=== PATIENT | female | born 1945 | race Caucasian/White ===

== ENCOUNTER 2023-04-08 11:05 | Observation (INO) | payer MEDICARE, SELFPAY ==
[2023-04-08] VITALS (40 sets, daily range): BP systolic 100–162; BP diastolic 43–74; PULSE 62–82; RESP 0–24; TEMP 37–37.4; O2SAT 84–100; BMI 29.0; BMI 29.7
--- NOTE | 2023-04-08 11:29 | ED_ITS ---
HPI - Fall General Chief Complaint: Weakness Stated Complaint: DIZZINESS/WEAKNESS/FALLEN 2X/HEADACHE Time Seen by Provider: 04/08/23 11:29 Source: patient and family Mode of arrival: Wheelchair Limitations: no limitations History of Present Illness HPI Narrative: pt presents to emergency department complaining of weakness. Patient states she has fallen twice today because she is very weak. Hit her head and she takes aspirin. She states she has a cough, shortness of breath. The cough is productive of yellow sputum. Symptoms have been ongoing for about a week. The patient was in [place] and she fell and has an abrasion to her left pinky metatarsal area. She states she's been doing wound care as and certainly that could be the problem.Patient has a history of stage III kidney disease. 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 She denies any chest pain. She denies any nausea, vomiting, diarrhea, constipation, or abdominal pain. Specifically, hematuria, dysuria. Extremities the fevers states she's had chills she denies any previous history of lung disease. Related Data Home Medications Medication Instructions Recorded Confirmed B-complex with vitamin C 1 tab PO DAILY 04/08/23 04/08/23 amlodipine 10 mg tablet 10 mg PO DAILY 04/08/23 04/08/23 aspirin 81 mg chewable tablet 81 mg PO DAILY 04/08/23 04/08/23 atorvastatin 40 mg tablet 40 mg PO QPM 04/08/23 04/08/23 calcium citrate 200 mg (950 mg) 200 mg PO DAILY 04/08/23 04/08/23 tablet cholecalciferol (vitamin D3) 125 125 mcg PO DAILY 04/08/23 04/08/23 mcg (5,000 unit) capsule citalopram 10 mg tablet 10 mg PO DAILY 04/08/23 04/08/23 colestipol 1 gram tablet (Colestid) 1 g PO BID 04/08/23 04/08/23 fluticasone propionate 50 1 spray intranasal DAILY 04/08/23 04/08/23 mcg/actuation nasal spray,suspension (Flonase Allergy Relief) furosemide 40 mg tablet 40 mg PO DAILY 04/08/23 04/08/23 gabapentin 300 mg capsule 300 mg PO TID 04/08/23 04/08/23 gabapentin 600 mg tablet 600 mg PO .QHS 04/08/23 04/08/23 insulin glargine 100 unit/mL 40 unit subcut QPM 04/08/23 04/08/23 subcutaneous solution insulin lispro 100 unit/mL 15 unit subcut BID 04/08/23 04/08/23 subcutaneous pen insulin lispro 100 unit/mL 10 unit subcut QAM 04/08/23 04/08/23 subcutaneous solution multivitamin-ferrous 1 tab PO DAILY 04/08/23 04/08/23 fumarate-folic acid 18 mg-400 mcg tablet (Centrum Complete) Allergies Allergy/AdvReac Type Severity Reaction Status Date / Time No Known Drug Allergies Allergy Verified 04/08/23 11:15 Review of Systems ROS Status of ROS 10 or more systems reviewed and unremarkable except as noted in history and below Exam Narrative Exam Narrative: Nurses notes and vital signs reviewed and patient is not hypoxic. General: Nontoxic, Elderly, Chronically ill, and in no apparent distress. Skin: Warm, dry, no pallor noted. No Rash Head: Normocephalic, atraumatic. Neck: Supple, non-tender. Eye: Pupils are equal, round and EOMI. No scleral icterus. Ears, Nose, Mouth, and Throat: TM clear, no posterior oropharynx erythema or nasal mucosal hypertrophy, uvula is mid-line Oral mucosa is dry Cardiovascular: Regular Rate and Rhythm without murmur, gallop or rub. Respiratory: No accessory muscle use or respiratory distress. Lungs are clear to auscultation, no wheezing, rales or rhonchi Chest Wall: no tenderness Back: No midline thoracic or lumbar vertebral tenderness. No CVA tenderness Musculoskeletal: normal ROM, no calf or popliteal tenderness, no lower extremity edema/swelling, 2 cm left 5th metatarsophalangeal joint abrasion with 2 cm of erythema streaking proximally. DP +2, tp+2, capillary refill is brisk. GI: Abdomen is soft, non-distended. Normal bowel sounds. No masses appreciated. No tenderness to palpation. No rebound, guarding, or rigidity noted. Neurological: A&O x4. No cranial nerve dysfunction observed. Moves all extremities. Psychiatric: Cooperative and interactive. Normal mood and affect. Constitutional Vital Signs, click to edit/add: Last Vital Signs Temp 98.6 F 04/08/23 11:12 Pulse 81 04/08/23 16:15 Resp 24 04/08/23 16:15 BP 162/74 H 04/08/23 16:15 Pulse Ox 92 L 04/08/23 16:15 O2 Del Method Room Air, Nasal Cannula 04/08/23 13:19 O2 Flow Rate 2 04/08/23 13:19 Course Vital Signs Vital signs: Vital Signs Temperature 98.6 F 04/08/23 11:12 Pulse Rate 66 04/08/23 11:12 Respiratory Rate 18 04/08/23 11:12 Blood Pressure 109/68 04/08/23 11:12 Pulse Oximetry 96 04/08/23 11:12 Oxygen Delivery Method Room Air 04/08/23 11:12 Temperature 98.6 F 04/08/23 11:12 Pulse Rate 81 04/08/23 16:15 Respiratory Rate 24 04/08/23 16:15 Blood Pressure 162/74 H 04/08/23 16:15 Pulse Oximetry 92 L 04/08/23 16:15 Oxygen Delivery Method Room Air, Nasal Cannula 04/08/23 13:19 Oxygen Delivery Flow Rate 2 04/08/23 13:19 MDM - Fall MDM Narrative Medical decision making narrative: Patient was given IV fluids, Rocephin. Patient is found to be hypoxic. She stated she has sleep apnea and was told years ago she needed to use a BiPAP. Her BiPAP broke so she has not used in over 3 years. Patient states she has no other history of lung disease. She does not use any nebulizers at home. [address] scan of the chest without contrast secondary to kidney disease did not show anything acute either. ABG demonstrates the patient is hypoxic even on 2 L nasal cannula. Patient is to have a VQ scan done. Patient was discussed with Dr. Santiago to admit the patient for urinary tract infection, cellulitis and hypoxemia. He advised that the patient heparin subcutaneous and bring the Patient and for observation. Medical Records Attestation: I reviewed the patient's medical records. Medical records narrative: His previous labs were reviewed. Lab Data Attestation: I reviewed the patient's lab results. Labs: Lab Results 04/08/23 04/08/23 04/08/23 Range/Units 11:30 14:10 15:25 WBC 14.1 H (4.0-11.0) 10^3/uL RBC 3.54 L (4.20-5.40) 10^6/uL Hgb 10.5 L (12.0-16.0) g/dL Hct 32.2 L (36.0-48.0) % MCV 91.0 (81.0-99.0) fL MCH 29.7 (26.7-34.0) pg MCHC 32.6 (29.9-35.2) g/dL RDW 13.1 (11.0-15.0) % Plt Count 145 L (150-450) 10^3/uL MPV 11.0 (9.5-13.5) fL Neut % (Auto) 88.1 H (43.0-75.0) % Lymph % (Auto) 2.9 L (20.5-60.0) % [place] % (Auto) 8.3 (1.7-12.0) % Eos % (Auto) 0.1 L (0.9-7.0) % Baso % (Auto) 0.2 (0.2-2.0) % Neut # (Auto) 12.5 H (1.4-6.5) 10^3/uL Lymph # (Auto) 0.4 L (1.2-3.8) 10^3/uL [place] # (Auto) 1.2 H (0.3-0.8) 10^3/uL Eos # (Auto) 0.0 (0.0-0.7) 10^3/uL Baso # (Auto) 0.0 (0.0-0.1) 10^3/uL Abs Immat Gran (auto) 0.06 H (0.00-0.03) 10^3/uL Imm/Tot Granulo (auto) 0.4 (0.0-0.5) % Puncture Site Lr ABG pH 7.445 (7.350-7.450) ABG pCO2 37.7 (35.0-45.0) mmHg ABG pO2 61.9 L (80.0-100.0) mmHg ABG HCO3 25.9 (22.0-26.0) mmol/L ABG O2 Saturation 90.7 % ABG Base Excess 1.8 (-2.0-2.0) mmol/L David Test Positive (POSITIVE) O2 Liters/Min 2 Sodium 133 L (136-145) mmol/L Potassium 4.7 (3.5-5.1) mmol/L Chloride 96 L (98-107) mmol/L Carbon Dioxide 27.2 (21.0-32.0) mmol/L Anion Gap 14.5 BUN 84.0 H* (7.0-18.0) mg/dL Creatinine 3.21 H (0.55-1.02) mg/dL Est GFR ( Amer) 17 L (>=60) Est GFR (Non-Af Amer) 14 L (>=60) BUN/Creatinine Ratio 26.2 Glucose 316 H (74-106) mg/dL Calcium 8.6 (8.5-10.1) mg/dL Magnesium 1.9 (1.8-2.4) mg/dL Total Bilirubin 1.3 H (0.2-1.0) mg/dL AST 14 L (15-37) U/L ALT 23 (14-59) U/L Alkaline Phosphatase 63 (46-116) U/L Troponin I High Sens 47.5 (4.0-51.3) pg/mL NT-Pro-B Natriuret Pep 2855.0 H* (<=1800.0) pg/mL Total Protein 6.9 (6.4-8.2) g/dL Albumin 3.2 L (3.4-5.0) g/dL Globulin 3.7 g/dL Albumin/Globulin Ratio 0.9 TSH 1.653 (0.358-3.740) uIU/mL Urine Color Lt. yellow (YELLOW) Urine Clarity Clear (CLEAR) Urine pH 5.5 (5.0-9.0) Ur Specific [place] 1.010 (1.005-1.025) Urine Protein 30 A (NEG/TRACE) mg/dL Urine Glucose (UA) Negative (NEGATIVE) mg/dL Urine Ketones Negative (NEGATIVE) mg/dL Urine Occult Blood Trace-i (NEGATIVE) Urine Nitrite Negative (NEGATIVE) Urine Bilirubin Negative (NEGATIVE) Urine Urobilinogen 0.2 (0.2-1.0) EU/dL Ur Leukocyte Esterase Moderate A (NEGATIVE) Urine RBC 0-2 (0-2) #/HPF Urine WBC 10-20 A (NONE SEEN) #/HPF Ur Squamous Epith Cells None seen (NONE/RARE) #/LPF Urine Crystals None seen (None Seen) #/HPF Urine Bacteria Moderate A (NONE SEEN) #/HPF Urine Casts None seen (NONE SEEN) #/LPF Urine Mucus None seen (NONE SEEN) Ur Culture Indicated? Yes ECG Data Attestation: I personally reviewed and interpreted this ECG as follows: Discharge Plan Discharge Chief Complaint: Weakness Clinical Impression: Chronic progressive renal failure, stage 3 (moderate), Hypoxemia, Acute UTI, Cellulitis of foot, left Patient Disposition: Admitted as Observation Time of Disposition Decision: 16:07 Condition: Good
--- NOTE | 2023-04-08 11:30 | ECG_ITS ---
The [facility] Test Date: 2023-04-08 Pat Name: ZIA CHAVEZ Department: Room: - Gender: Female [employer]: : 1945 Requested By: Order Number: [id number] Reading MD: CHRISTOPHER ORNELAS Measurements Intervals [place] Rate: 72 P: 54 [place]: 168 QRS: -45 QRSD: 88 T: 64 QT: 378 QTc: 402 Interpretive Statements 1100 Sinus rhythm 1570 with occasional ventricular premature complexes 2630 Left anterior fascicular block 3433 Septal myocardial infarction, probably old 8003 Consistent with pulmonary disease 9150 abnormal ECG No previous ECG available for comparison Electronically Signed On 04-10-2023 18:02:41 EDT by CHRISTOPHER ORNELAS
[2023-04-08 11:46] LABS: Basophils Percent Auto 0.2 % (0.2-2.0); Eosinophils Percent Auto 0.1 % (0.9-7.0); Hematocrit 32.2 % (36.0-48.0); Hemoglobin 10.5 g/dL (12.0-16.0); Immature Granulocytes Abs Auto 0.06 10^3/uL (0.00-0.03); Immature Granulocytes Pct Auto 0.4 % (0.0-0.5); Lymphocytes Absolute Auto 0.4 10^3/uL (1.2-3.8); Lymphocytes Percent Auto 2.9 % (20.5-60.0); Mean Corpuscular HGB Conc 32.6 g/dL (29.9-35.2); Mean Corpuscular Hemoglobin 29.7 pg (26.7-34.0); Monocytes Absolute Auto 1.2 10^3/uL (0.3-0.8); Monocytes Percent Auto 8.3 % (1.7-12.0); Neutrophils Absolute Auto 12.5 10^3/uL (1.4-6.5); Neutrophils Percent Auto 88.1 % (43.0-75.0); Platelet Count 145 10^3/uL (150-450); Red Blood Count 3.54 10^6/uL (4.20-5.40); Red Cell Distribution Width 13.1 % (11.0-15.0); White Blood Count 14.1 10^3/uL (4.0-11.0)
--- NOTE | 2023-04-08 11:50 | CT_ITS ---
The [address] [address] Patient Name: ZIA CHAVEZ MRN: [id number] date: 1945 Sex: F Assigned Patient Location: ER Current Patient Location: ER Accession/Order Number: [id number] Exam Date: 04/08/2023 11:38 Report Date: 04/08/2023 12:06 At the request of: MICHELLE LEI Procedure: CT cervical spine wo con CT CERVICAL SPINE WITHOUT CONTRAST HISTORY: falls. COMPARISON: None available. TECHNIQUE: Helical CT images were performed of the cervical spine without intravenous contrast. Dose reduction techniques were achieved by using automated exposure control and/or adjustment of mA and/or kV according to patient size and/or use of iterative reconstruction technique. FINDINGS: CRANIOCERVICAL AND ATLANTOAXIAL ARTICULATIONS: Intact with no traumatic subluxation. VERTEBRAL BODIES: Normal in height with no acute compression fracture. DISC SPACES: Moderate loss of disc height at C5-6. ALIGNMENT: Normal. POSTERIOR ELEMENTS: Intact. ODONTOID PROCESS: Intact. VISUALIZED SKULL BASE: Unremarkable. SPINAL CANAL/NEURAL FORAMEN: Moderate bilateral neural foraminal stenosis at C5-6. UPPER THORAX: Unremarkable. SOFT TISSUES OF THE NECK: There is a 1.9 x 1.7 cm left-sided thyroid nodule. Clips are noted in the left neck region. CT/CT cervical spine wo con IMPRESSION: 1. No acute fracture or subluxation. 2. Degenerative changes as described in the body of the report. 3. Left-sided thyroid nodule measuring 1.9 x 1.7 cm. This would be better evaluated on thyroid ultrasound. 4. Prior neck surgery noted. Electronically authenticated by: DALTON SANCHEZ Date: 04/08/2023 12:06
--- NOTE | 2023-04-08 11:50 | CT_ITS ---
The [address] [address] Patient Name: ZIA CHAVEZ MRN: [id number] date: 1945 Sex: F Assigned Patient Location: ER Current Patient Location: ER Accession/Order Number: [id number] Exam Date: 04/08/2023 11:38 Report Date: 04/08/2023 12:03 At the request of: MICHELLE LEI Procedure: CT head/brain wo con EXAMINATION: CT head/brain wo con, 04/08/2023 11:38 AM EDT HISTORY: pain, falls COMPARISON: None. TECHNIQUE: CT scan of the head was performed without IV contrast. CT dose reduction technique was used, including Automated Exposure Control. FINDINGS: BRAIN PARENCHYMA/CSF SPACES: Ventricles are normal in size for age. There is no hemorrhage, mass effect or midline shift. Mild low attenuation in the white matter consistent with chronic microvascular ischemia. PARANASAL SINUSES: Clear. SKULL BASE AND CALVARIUM: Normal. EXTRACRANIAL SOFT TISSUES: Normal. CT/CT head/brain wo con IMPRESSION: No acute intracranial findings. Electronically authenticated by: DALTON SANCHEZ Date: 04/08/2023 12:03
[2023-04-08 12:09] LABS: Scan Results NEGATIVE
[2023-04-08 12:10] LABS: Alanine Aminotransferase 23 U/L (14-59); Albumin Globulin Ratio 0.9; Albumin Level 3.2 g/dL (3.4-5.0); Alkaline Phosphatase 63 U/L (46-116); Anion Gap 14.5; Aspartate Amino Transferase 14 U/L (15-37); BUN Creatinine Ratio 26.2; Bilirubin Total 1.3 mg/dL (0.2-1.0); Calcium 8.6 mg/dL (8.5-10.1); Carbon Dioxide 27.2 mmol/L (21.0-32.0); Chloride 96 mmol/L (98-107); Estimated GFR (African America 17 (>=60); Estimated GFR (Non-African Ame 14 (>=60); Globulin 3.7 g/dL; Glucose 316 mg/dL (74-106); Magnesium 1.9 mg/dL (1.8-2.4); Potassium 4.7 mmol/L (3.5-5.1); Sodium 133 mmol/L (136-145); Thyroid Stimulating Hormone 1.653 uIU/mL (0.358-3.740); Total Protein 6.9 g/dL (6.4-8.2); Troponin I High Sensitivity 47.5 pg/mL (4.0-51.3)
[2023-04-08] MEDS: 0.9 % SODIUM CHLORIDE 1,000 ML 999 ML IV (12:24)
--- NOTE | 2023-04-08 12:37 | XR_ITS ---
The [address] [address] Patient Name: ZIA CHAVEZ MRN: [id number] date: 1945 Sex: F Assigned Patient Location: ER Current Patient Location: ER Accession/Order Number: [id number] Exam Date: 04/08/2023 12:45 Report Date: 04/08/2023 13:22 At the request of: MICHELLE LEI Procedure: XR foot LT min 3V PROCEDURE: XR foot LT min 3V COMPARISON: None. HISTORY: pain, fall FINDINGS: BONES:No acute fracture or dislocation. Moderate degenerative changes with joint space narrowing and marginal osteophyte formation. Moderate enthesopathic spurring of the calcaneus SOFT TISSUES:Negative. No visible soft tissue swelling. EFFUSION:None visible. OTHER: Scattered calcifications XR/XR foot LT min 3V IMPRESSION: Moderate diffuse degenerative changes Electronically authenticated by: GUS LICONA Date: 04/08/2023 13:22
--- NOTE | 2023-04-08 12:37 | XR_ITS ---
The [address] [address] Patient Name: ZIA CHAVEZ MRN: [id number] date: 1945 Sex: F Assigned Patient Location: ER Current Patient Location: ER Accession/Order Number: [id number] Exam Date: 04/08/2023 12:45 Report Date: 04/08/2023 13:20 At the request of: MICHELLE LEI Procedure: XR chest 1V EXAMINATION: XR chest 1V HISTORY: cough COMPARISON: No relevant comparison available. TECHNIQUE: AP portable FINDINGS: LUNGS: No significant pulmonary parenchymal abnormalities. Low lung volumes VASCULATURE: No increased pulmonary vasculature. PLEURA: No pneumothorax, effusion, or pleural thickening. CARDIAC: No cardiomegaly or cardiac silhouette abnormality. MEDIASTINUM: No visible mass or adenopathy. Aortic atherosclerosis BONES: No fracture or visible bone lesion. OTHER: Negative. XR/XR chest 1V IMPRESSION: Low volume exam, clear lungs Electronically authenticated by: GUS LICONA Date: 04/08/2023 13:20
--- NOTE | 2023-04-08 13:15 | CT_ITS ---
The [place] [id number] Patient Name: ZIA CHAVEZ MRN: [id number] date: 1945 Sex: F Assigned Patient Location: ER Current Patient Location: ER Accession/Order Number: [id number] Exam Date: 04/08/2023 13:32 Report Date: 04/08/2023 14:01 At the request of: MICHELLE LEI Procedure: CT chest wo con CT chest wo con, 04/08/2023 1:32 PM EDT INDICATION: Cough, hypoxemia. General weakness, recent falls. COMPARISON: Radiograph the chest 04/08/2023 TECHNIQUE: Thin-section axial CT images of the chest were acquired without contrast. Supplemental 2D reformatted images were generated and reviewed as needed. Dose reduction techniques were achieved by using automated exposure control and/or adjustment of mA and/or kV according to patient size and/or use of iterative reconstruction technique. FINDINGS: Low lung volumes with elevation of both hemidiaphragms likely secondary to inspiratory effort. Redemonstration of hypodense nodules within the thyroid gland bilaterally. Mild cardiac enlargement. No pericardial effusion. Coronary artery calcification and calcified atherosclerotic change within the aorta. No aortic aneurysm. No mediastinal or axillary lymphadenopathy. Subsegmental atelectasis within the right upper lobe, lingula and left lower lobe. No pleural effusion. The upper abdomen is grossly unremarkable on a noncontrast scan. No acute fracture or dislocation. CT/CT chest wo con IMPRESSION: No acute cardiopulmonary process. Electronically authenticated by: MATTEO PARIS Date: 04/08/2023 14:01
[2023-04-08 14:21] LABS: Bilirubin Urine NEGATIVE (NEGATIVE); Blood Urine TRACE-I (NEGATIVE); Clarity Urine CLEAR (CLEAR); Color Urine LT. YELLOW (YELLOW); Glucose Urine UA NEGATIVE (NEGATIVE); Ketones Urine NEGATIVE (NEGATIVE); Leukocyte Esterase Urine MODERATE (NEGATIVE); Nitrite Urine NEGATIVE (NEGATIVE); Protein Urine 30 mg/dL (NEG/TRACE); Urobilinogen Urine 0.2 EU/dL (0.2-1.0); pH Urine 5.5 (5.0-9.0)
[2023-04-08 14:23] LABS: Urine Microscopic Indicated YES
[2023-04-08 14:30] LABS: Bacteria Urine MODERATE #/HPF (NONE SEEN); Mucus Urine NONE SEEN (NONE SEEN); RBC Urine 0-2 #/HPF (0-2)
[2023-04-08 14:31] LABS: Cast Seen? NONE SEEN #/LPF (NONE SEEN); Crystals Seen? None Seen #/HPF (None Seen); Squamous Epithelial Cell Urine NONE SEEN #/LPF (NONE/RARE); Urine Culture Indicated YES
[2023-04-08] MEDS: CEFTRIAXONE 1,000 MG in 0.9 % SODIUM CHLORIDE 50 ML 100 MG IV (14:46)
[2023-04-08 15:32] LABS: pH ABG 7.445 (7.350-7.450)
[2023-04-08 15:33] LABS: ABG PCO2 37.7 mmHg (35.0-45.0); Allen Test POSITIVE (POSITIVE); Base Excess ABG 1.8 mmol/L (-2.0-2.0); HCO3 ABG 25.9 mmol/L (22.0-26.0); Liters per Minute 2; O2 Mode NC; Oxygen Saturation ABG 90.7 %; PO2 ABG 61.9 mmHg (80.0-100.0); Puncture Site LR
[2023-04-08] MEDS: ACETAMINOPHEN 325 MG TABLET 650 MG PO (15:50)
[2023-04-08 15:52] LABS: Adenovirus NOT DETECTED (NOT DETECTE); Bordetella parapertussis NOT DETECTED (NOT DETECTE); Coronavirus 229E NOT DETECTED (NOT DETECTE); Coronavirus HKU1 NOT DETECTED (NOT DETECTE); Coronavirus NL63 NOT DETECTED (NOT DETECTE); Coronavirus OC43 NOT DETECTED (NOT DETECTE); Human Metapneumovirus NOT DETECTED (NOT DETECTE); Human Rhinovirus/Enterovirus NOT DETECTED (NOT DETECTE); Influenza A NOT DETECTED (NOT DETECTE); Influenza B NOT DETECTED (NOT DETECTE); Mycoplasma pneumoniae NOT DETECTED (NOT DETECTE); Parainfluenza Virus 1 NOT DETECTED (NOT DETECTE); Parainfluenza Virus 2 NOT DETECTED (NOT DETECTE); Parainfluenza Virus 3 NOT DETECTED (NOT DETECTE); Parainfluenza Virus 4 NOT DETECTED (NOT DETECTE); Respiratory Syncytial Virus NOT DETECTED (NOT DETECTE); SARS-CoV-2 NOT DETECTED (NOT DETECTE)
[2023-04-08] MEDS: HEPARIN SODIUM (PORCINE) 5,000 UNIT/ML VIAL 5000 UNIT SUBQ ×2 (16:39→21:36)
[2023-04-08] MEDS: 0.9 % SODIUM CHLORIDE 1,000 ML 80 ML IV (17:49)
[2023-04-08 21:26] LABS: Glucometer 439 mg/dL (74-106)
[2023-04-08] MEDS: INSULIN ASPART 300 UNIT/3 ML PEN SUBQ (21:37)
[2023-04-08] MEDS: ACETAMINOPHEN 500 MG TABLET 1000 MG PO (21:38)
[2023-04-08] MEDS: INSULIN DETEMIR 300 UNIT/3 ML INSULN.PEN 20 UNIT SUBQ (23:01)
[2023-04-09] VITALS (20 sets, daily range): BP systolic 121–133; BP diastolic 55–65; PULSE 57–92; RESP 16–18; TEMP 36.6–37.4; O2SAT 85–94
[2023-04-09 04:29] LABS: Basophils Percent Auto 0.3 % (0.2-2.0); Eosinophils Absolute Auto 0.1 10^3/uL (0.0-0.7); Eosinophils Percent Auto 0.5 % (0.9-7.0); Hematocrit 30.1 % (36.0-48.0); Hemoglobin 9.8 g/dL (12.0-16.0); Immature Granulocytes Abs Auto 0.05 10^3/uL (0.00-0.03); Immature Granulocytes Pct Auto 0.5 % (0.0-0.5); Lymphocytes Absolute Auto 0.7 10^3/uL (1.2-3.8); Mean Corpuscular HGB Conc 32.6 g/dL (29.9-35.2); Mean Platelet Volume 11.4 fL (9.5-13.5); Monocytes Absolute Auto 1.1 10^3/uL (0.3-0.8); Monocytes Percent Auto 11.4 % (1.7-12.0); Neutrophils Absolute Auto 7.5 10^3/uL (1.4-6.5); Neutrophils Percent Auto 80.3 % (43.0-75.0); Platelet Count 140 10^3/uL (150-450); Red Blood Count 3.27 10^6/uL (4.20-5.40); Red Cell Distribution Width 13.3 % (11.0-15.0); White Blood Count 9.3 10^3/uL (4.0-11.0)
[2023-04-09] MEDS: ACETAMINOPHEN 500 MG TABLET 1000 MG PO ×3 (04:29→19:30)
[2023-04-09 04:38] LABS: Anion Gap 13.9; BUN Creatinine Ratio 25.2; Calcium 7.8 mg/dL (8.5-10.1); Carbon Dioxide 25.3 mmol/L (21.0-32.0); Chloride 99 mmol/L (98-107); Estimated GFR (African America 17 (>=60); Estimated GFR (Non-African Ame 14 (>=60); Glucose 324 mg/dL (74-106); Potassium 4.2 mmol/L (3.5-5.1); Sodium 134 mmol/L (136-145)
--- NOTE | 2023-04-09 05:00 | XR_ITS ---
The [place] [id number] Patient Name: ZIA CHAVEZ MRN: [id number] date: 1945 Sex: F Assigned Patient Location: MS Current Patient Location: MS Accession/Order Number: [id number] Exam Date: 04/09/2023 06:20 Report Date: 04/09/2023 08:10 At the request of: KEO WONG Procedure: XR chest 2V CLINICAL HISTORY: Hypoxia. EXAMINATION: PA and lateral chest: 04/09/2023. COMPARISON: AP chest 04/08/2023. FINDINGS: The bones are osteopenic with some degenerative changes of thoracic spine. The patient is slightly rotated. There is eventrated right hemidiaphragm. The heart size seems normal. The aorta is mildly atherosclerotic. There are no discrete infiltrates, pleural effusions, pulmonary edema or pneumothorax. XR/XR chest 2V IMPRESSION: No acute cardiopulmonary disease or significant interval change. Electronically authenticated by: MARILEE MOFFETT Date: 04/09/2023 08:10
[2023-04-09] MEDS: 0.9 % SODIUM CHLORIDE 1,000 ML 80 ML IV ×2 (05:11→21:47)
--- NOTE | 2023-04-09 08:08 | PM.HP ---
H&P: HPI History of Present Illness Chief complaint: DIZZINESS/FALL 2X/HEADACHE UTI HYPOXEMIC LT FT MELISSA Narrative: patient is a 77-year-old female with past medical history of chronic kidney disease stage III of which she sees a section leader and machine setter, type 2 insulin-dependent diabetes, diabetic neuropathy, hyperlipidemia, hypertension, depression, and a heart murmur of unknown source. She reports she does see a acid painter for a left foot wound that she received while in [place] approximately one week ago. She just seen her acid painter in [place] on Tuesday and had a bedside debridement. She also follows with Dr. Alicia Luna for her primary care physician. She does see a mold tooler once a year for evaluation of a leaky valve . She reports over the last few weeks she has had increased falls and on had some chills. She last fell at home hitting her head on the tand as she was getting up from bed. She reports she feels dizzy but she denies any loss of consciousness with the falls. She does live at home alone but gets around okay and drives herself at baseline. Her granddaughter came to pick her up and noticed some blood on her pillow from a fall and took her into the Emergency Room yesterday. Patient was found to have a urinary tract infection. Due to her chronic kidney disease and new finding of hypoxia a CTA of the chest cannot be performed so a VQ scan has been ordered. She denies any lung history she is not a smoker. Oxygen dips below 80s while in the Emergency Room yesterday. She also notes a history of sleep apnea and was told three years ago she was supposed to use a BiPAP. She also mentions that she has a valvular issue and was told many years ago she needed heart surgery for a valve replacement but it has not led to that yet.she is also noted a productive cough and some shortness of breath ?1 week while in [place]. at the time of exam patient denies any issues. Review of Systems ROS Narrative ROS: a complete review of systems were reviewed with patient and are positive as below or listed in History of Chief Complaint. General: no fever, but chills, no night sweats Head: no headache, trauma, visual changes, nausea or vomiting Skin: no reported rashes, itching or sores Eyes: no blurriness of vision Ears: no reported hearing loss, vertigo, earache, or tinnitus Throat: no sore throat, hoarseness, swelling of neck, or tongue pain Heart: no chest pain Lungs: some shortness of breath and cough GI: no diarrhea or vomiting/nausea Urinary: no urinary urgency, frequency or pain Neuro: no numbness or tingling HEM: no bleeding issues or bruising ENDO: no thyroid problems Psych: no anxiety or depression PFSH PFS Medical History (Updated 04/09/23 @ 10:22 by Amisha Caldera DO) Surgical History Family History Father Family history of cancer Family history of diabetes mellitus Family history of hypertension Family history of myocardial infarction Family history of stroke Mother Family history of cancer Family history of diabetes mellitus Family history of hypertension Sister Family history of cancer Brother Family history of diabetes mellitus Social History Within the past year, how often did you have a drink containing alcohol: monthly or less Within the past year, how many standard drinks containing alcohol did you have on a typical day: 1 or 2 Within the past year, how often did you have six or more drinks on one occasion: never Total score: 0 Score interpretation: A score less than 3 is consistent with normal alcohol consumption. Smoking status: Never smoker Non-prescribed substance use: denies use Previous occupational history: Retired Highest level of school completed/degree received: Bachelor's degree Are you now , , , , never or living with a partner: In a typical week, how many times do you talk on the telephone with family, friends, or neighbors: 3 or more times per week How often do you get together with friends or relatives: twice per week How often do you attend adventism or denominational services: 4 or more times per year Do you belong to any clubs or organizations such as adventism groups unions, fraternal or athletic groups, or school groups: no Total score: 2 Score interpretation: A score of greater than or equal to 2 indicates the lowest level of social isolation. Little interest or pleasure in doing things: not at all Feeling down, depressed, or hopeless: not at all Feel stressed/tense/nervous/anxious/difficulty sleeping: not at all Gender Identity: female Meds Home Medications and Allergies Home Medications Medication Instructions Recorded Confirmed Type B-complex with vitamin C 1 tab PO DAILY 04/08/23 04/08/23 History amlodipine 10 mg tablet 10 mg PO DAILY 04/08/23 04/08/23 History aspirin 81 mg chewable tablet 81 mg PO DAILY 04/08/23 04/08/23 History atorvastatin 40 mg tablet 40 mg PO QPM 04/08/23 04/08/23 History calcium citrate 200 mg (950 mg) 200 mg PO DAILY 04/08/23 04/08/23 History tablet cholecalciferol (vitamin D3) 125 125 mcg PO DAILY 04/08/23 04/08/23 History mcg (5,000 unit) capsule fluticasone propionate 50 1 spray intranasal DAILY 04/08/23 04/08/23 History mcg/actuation nasal spray,suspension (Flonase Allergy Relief) furosemide 40 mg tablet 40 mg PO DAILY 04/08/23 04/08/23 History gabapentin 300 mg capsule 300 mg PO TID 04/08/23 04/08/23 History gabapentin 600 mg tablet 600 mg PO .QHS 04/08/23 04/08/23 History insulin glargine 100 unit/mL 40 unit subcut QPM 04/08/23 04/08/23 History subcutaneous solution insulin lispro 100 unit/mL 15 unit subcut BID 04/08/23 04/08/23 History subcutaneous pen insulin lispro 100 unit/mL 10 unit subcut QAM 04/08/23 04/08/23 History subcutaneous solution multivitamin-ferrous 1 tab PO DAILY 04/08/23 04/08/23 History fumarate-folic acid 18 mg-400 mcg tablet (Centrum Complete) citalopram 20 mg tablet (Celexa) 20 mg PO DAILY 04/09/23 04/09/23 History colestipol 1 gram tablet (Colestid) 2 g PO DAILY 04/09/23 04/09/23 History lifitegrast 5 % eye drops in a 1 drp ophthalmic (eye) BID 04/09/23 04/09/23 History dropperette (Xiidra) losartan 50 mg tablet 50 mg PO DAILY 04/09/23 04/09/23 History omeprazole 20 mg capsule,delayed 20 mg PO DAILY 04/09/23 04/09/23 History release Allergies Allergy/AdvReac Type Severity Reaction Status Date / Time No Known Drug Allergies Allergy Verified 04/08/23 11:15 Exam Narrative Exam Narrative: General: Patient is alert, and oriented to person, place and time with normal affect, proper hygiene Skin: no visible rashes, or ulcers, no visible abrasions Head: atraumatic, acephalic Eyes: PERRLA, no nystagmus present, conjunctiva clear, no scleral icterus Ears: normal gross auditory acuity Nose: symmetric, no discharge, no maxillary or frontal sinus tenderness Neck: no masses palpated, normal thyroid, no JVD or audible carotid bruits Heart: Normal rate and rhythm, holosystolic murmur Lungs: no audible wheezes, crackles and normal breath sounds all lung bowen Abdomen: Normal audible bowel sounds, no distension, No palpable masses, no organomegaly, no rebound/guarding/ or rigidity Musculoskeletal: muscle atrophy noted, ROM is limited due to being in hospital bed, no swelling bilateral lower extremities Vascular: Normal carotid, radial, femoral, posterior tibial, and dorsalis pedis pulses Lymph: no supraclavicular, axillary, or anterior/posterior cervical adenopathy Neuro: CN II-X grossly intact, normal sensation upper and lower extremities Constitutional Vital Signs, click to edit/add: Last Vital Signs Temp 98.4 F 04/09/23 05:49 Pulse 57 L 04/09/23 07:55 Resp 18 04/09/23 04:08 BP 121/55 04/09/23 04:08 Pulse Ox 94 L 04/09/23 05:30 O2 Del Method Nasal Cannula 04/09/23 05:30 O2 Flow Rate 2 04/09/23 05:30 Results Labs Labs: Short CBC 04/08/23 04/09/23 Range/Units 11:30 04:01 WBC 14.1 H 9.3 (4.0-11.0) 10^3/uL Hgb 10.5 L 9.8 L (12.0-16.0) g/dL Hct 32.2 L 30.1 L (36.0-48.0) % Plt Count 145 L 140 L (150-450) 10^3/uL BMP 04/08/23 04/09/23 11:30 04:01 Sodium 133 L 134 L Potassium 4.7 4.2 Chloride 96 L 99 Carbon Dioxide 27.2 25.3 BUN 84.0 H* 81.0 H* Creatinine 3.21 H 3.22 H Glucose 316 H 324 H Calcium 8.6 7.8 L Liver Function 04/08/23 Range/Units 11:30 Total Bilirubin 1.3 H (0.2-1.0) mg/dL AST 14 L (15-37) U/L ALT 23 (14-59) U/L Alkaline Phosphatase 63 (46-116) U/L Albumin 3.2 L (3.4-5.0) g/dL Urine 04/08/23 Range/Units 14:10 Urine Color Lt. yellow (YELLOW) Urine Clarity Clear (CLEAR) Urine pH 5.5 (5.0-9.0) Ur Specific [place] 1.010 (1.005-1.025) Urine Protein 30 A (NEG/TRACE) mg/dL Urine Glucose (UA) Negative (NEGATIVE) mg/dL ABG ABG results: 04/08/23 15:25 ABG pH 7.445 ABG pCO2 37.7 ABG pO2 61.9 L ABG HCO3 25.9 ABG O2 Saturation 90.7 ABG Base Excess 1.8 Assessment and Plan Assessment and Plan (1) Hypoxemia: Assessment and Plan: initial CT of the chest was negative for any acute findings, chest x-ray also negative, VQ scan ordered secondary to patient's kidney function and a CTA for PE protocol cannot be performed. Continue to monitor oxygen status. (2) Acute UTI: Assessment and Plan: urine culture pending continue Rocephin (3) Cellulitis of foot, left: Assessment and Plan: and continue Rocephin and monitor (4) Acute bronchitis: Assessment and Plan: add Zithromax today (5) Chronic progressive renal failure, stage 3 (moderate): Assessment and Plan: appears at baseline will monitor daily (6) Mitral valve regurgitation congenital: Assessment and Plan: echocardiograms not performed here on the weekends recommend close follow-up with cardiology and repeat echocardiogram. (7) Insulin dependent type 2 diabetes mellitus, controlled: Assessment and Plan: continue home insulin and sliding scale as needed (8) Diabetic neuropathic arthropathy: Assessment and Plan: continue gabapentin (9) Falls frequently: Assessment and Plan: PT OT evaluation and treat (10) Hypertension: Assessment and Plan: continue home medications (11) Left thyroid nodule: Assessment and Plan: incidental finding on CT of the neck, finding discussed with patient and has been monitored as an outpatient for several years with no change per patient Plan patient is full code Will continue heparin for deep vein thrombosis prophylaxis Patient is in observation status and is not expected to stay more than two midnights
[2023-04-09] MEDS: INSULIN ASPART 300 UNIT/3 ML PEN SUBQ ×4 (08:33→22:06)
[2023-04-09] MEDS: HEPARIN SODIUM (PORCINE) 5,000 UNIT/ML VIAL 5000 UNIT SUBQ ×2 (08:35→20:47)
[2023-04-09] MEDS: FUROSEMIDE 40 MG TABLET PO (08:43)
[2023-04-09] MEDS: ASPIRIN 81 MG TAB.CHEW PO (08:43)
[2023-04-09] MEDS: CITALOPRAM HYDROBROMIDE 20 MG TABLET 10 MG PO (08:43)
[2023-04-09] MEDS: AMLODIPINE BESYLATE 5 MG TABLET 10 MG PO (08:43)
[2023-04-09] MEDS: FLUTICASONE PROPIONATE 50 MCG NASAL SPRAY 1 SPRAY NS (08:43)
--- NOTE | 2023-04-09 09:59 | NM_ITS ---
The [address] [address] Patient Name: ZIA CHAVEZ MRN: [id number] date: 1945 Sex: F Assigned Patient Location: [place] Current Patient Location: [place] Accession/Order Number: [id number] Exam Date: 04/09/2023 13:56 Report Date: 04/09/2023 15:32 At the request of: LINDSEY SHAFFER Procedure: NM pul vent and perfuse NM pul vent and perfuse CLINICAL HISTORY: Hypoxia, shortness of breath, CKD stage 3 COMPARISON: 04/09/2023. TECHNIQUE: 27.7 mCi Tc99m DTPA inhaled with static imaging of inhalation, equilibrium and washout phases. 6.0 mCi Tc 99 MAA injected intravenously with static imaging in the anterior, SERRANO, right lateral, RPO, posterior, LPO, left lateral and WELSH projections. FINDINGS: On the perfusion scan, there is uniform uptake in both right and left lungs without peripheral segmental or subsegmental defect. On the ventilation scan, there is symmetric ventilation. NM/NM pul vent and perfuse IMPRESSION: No ventilation/perfusion mismatch defects. There is a very low probability for pulmonary embolism. Electronically authenticated by: ALENA LEDESMA Date: 04/09/2023 15:32
[2023-04-09] MEDS: AZITHROMYCIN 250 MG TABLET 500 MG PO (10:24)
[2023-04-09 11:08] LABS: Glucometer 262 mg/dL (74-106)
[2023-04-09] MEDS: GABAPENTIN 300 MG CAPSULE PO ×2 (11:36→18:15)
[2023-04-09] MEDS: CEFTRIAXONE 1,000 MG in 0.9 % SODIUM CHLORIDE 50 ML 100 MG IV (16:27)
[2023-04-09 16:45] LABS: Glucometer 296 mg/dL (74-106)
[2023-04-09] MEDS: INSULIN DETEMIR 300 UNIT/3 ML INSULN.PEN 40 UNIT SUBQ (20:48)
[2023-04-09] MEDS: GABAPENTIN 300 MG CAPSULE 600 MG PO (21:44)
[2023-04-09] MEDS: ATORVASTATIN CALCIUM 40 MG TABLET PO (21:44)
[2023-04-09 21:45] LABS: Glucometer 450 mg/dL (74-106)
[2023-04-10] VITALS (20 sets, daily range): BP systolic 127–149; BP diastolic 57–70; PULSE 63–88; RESP 18; TEMP 36.7–37.7; O2SAT 91–100
[2023-04-10 05:12] LABS: Basophils Percent Auto 0.4 % (0.2-2.0); Eosinophils Absolute Auto 0.2 10^3/uL (0.0-0.7); Eosinophils Percent Auto 1.8 % (0.9-7.0); Hematocrit 28.5 % (36.0-48.0); Hemoglobin 9.2 g/dL (12.0-16.0); Immature Granulocytes Abs Auto 0.06 10^3/uL (0.00-0.03); Immature Granulocytes Pct Auto 0.7 % (0.0-0.5); Lymphocytes Absolute Auto 0.9 10^3/uL (1.2-3.8); Lymphocytes Percent Auto 10.1 % (20.5-60.0); Mean Corpuscular HGB Conc 32.3 g/dL (29.9-35.2); Mean Corpuscular Hemoglobin 29.3 pg (26.7-34.0); Mean Corpuscular Volume 90.8 fL (81.0-99.0); Mean Platelet Volume 11.2 fL (9.5-13.5); Monocytes Percent Auto 12.2 % (1.7-12.0); Neutrophils Absolute Auto 6.4 10^3/uL (1.4-6.5); Neutrophils Percent Auto 74.8 % (43.0-75.0); Platelet Count 163 10^3/uL (150-450); Red Blood Count 3.14 10^6/uL (4.20-5.40); Red Cell Distribution Width 13.2 % (11.0-15.0); White Blood Count 8.5 10^3/uL (4.0-11.0)
[2023-04-10] MEDS: GABAPENTIN 300 MG CAPSULE PO ×3 (05:16→17:03)
[2023-04-10 05:18] LABS: Anion Gap 13.1; BUN Creatinine Ratio 26.3; Calcium 7.9 mg/dL (8.5-10.1); Chloride 102 mmol/L (98-107); Estimated GFR (African America 18 (>=60); Estimated GFR (Non-African Ame 15 (>=60); Glucose 202 mg/dL (74-106); Potassium 4.1 mmol/L (3.5-5.1); Sodium 136 mmol/L (136-145)
--- NOTE | 2023-04-10 06:21 | CA_ITS ---
Patient: ZIA CHAVEZ Exam Date: 04/11/2023 : 1945 Gender:F Ordering : LINDSEY SHAFFER . Admission #: [id number] Family : DR ALEX SALGADO M.D. Order #: [id number] CLICK HERE TO VIEW EXAM ECHOCARDIOGRAM REPORT PROCEDURE: CA ECHO DOPPLER COMPLETE INDICATIONS: hypoxia, holosystolic murmur, falls, dizziness, hypertension, diabetes, chronic kidney disease COMPARISON: None. DESCRIPTION: COMPLETE ECHOCARDIOGRAM Real-time transthoracic echocardiography with 2D, M-mode, spectral and color flow Doppler performed. QUALITY: Technical quality was good. LEFT VENTRICLE: Normal chamber size. Thickened septal wall. LV EF: Global left ventricular systolic function is hyperdynamic; visually estimated ejection fraction is 65 to 70%. No obvious wall motion abnormalities. DIASTOLIC: Normal diastolic function. ATRIAL SEPTUM: Inadequately seen. LEFT ATRIUM: Normal chamber size. RIGHT ATRIUM: Normal chamber size. RIGHT VENTRICLE: Normal chamber size. Normal right ventricular systolic function. TRICUSPID VALVE: Normal mobility and thickness. No stenosis with mild regurgitation. Doppler studies reveal mildly (35-45) elevated right sided pressures. RVSP 37 mmHg MITRAL VALVE: Normal mobility and thickness. No evidence of mitral valve stenosis. Mild mitral annular calcification. Trivial mitral regurgitation. AORTIC VALVE: Normal trileaflet appearance. Mildly calcified aortic valve. No evidence of aortic valve stenosis. No aortic regurgitation. AORTIC ROOT: Normal diameter and appearance. PULMONIC VALVE: Normal thickness and mobility. No stenosis. No regurgitation. PERICARDIUM: No evidence of pericardial effusion. IVC: Collapses with inspirations. IVC is normal in size. CONCLUSION: Global left ventricular systolic function is hyperdynamic; visually estimated ejection fraction is 65 to 70%. Normal diastolic function. The right ventricle is normal in size and systolic function. Mild tricuspid regurgitation. Mildly elevated right ventricular systolic pressure. Adult Echocardiography Procedure Report Left Ventricle LVEDD (3.7 - 5.6 cm): 3.85 cm LVESD (2.2 - 4.0 cm): 2.60 cm LVIVS thickness (0.6 - 1.2 cm): 1.37 cm LVPW thickness (0.5 - 1.0 cm): 1.07 cm e': 0.11 m/s E - e': 10.04 LVOT Max Gradient: 6.50 mm[Hg] LVOT Area (cm2): 1.27 m/s Peak Velocity (LVOT): 1.27 m/s Mean Velocity (LVOT): 0.93 m/s LVOT Diameter 2.38 cm Left Atrium LA Volume Index (2D A2C): 33.81 ml/m2 Left Atrium Systolic Dimension: 4.16 cm Mitral Valve MV E to A Ratio: 1.10 Mitral Valve A-Wave Peak Velocity: 1.03 m/s Mitral Valve E-Wave Peak Velocity: 1.13 m/s Right Ventricle Aorta AO Root Diam: 3.35 cm Ascending Ao Diam: 2.55 cm Aortic Valve AoV Area (Peak Rafal): 2.55 cm2, 2.64 cm2 AoV Area (VTI): 2.69 cm2, 2.89 cm2 Peak Velocity(Antegrade Flow): 2.15 m/s, 2.30 m/s Peak Gradient(Antegrade Flow): 18.45 mm[Hg], 21.16 mm[Hg] Mean Velocity(Antegrade Flow): 1.64 m/s, 1.65 m/s Mean Gradient(Antegrade Flow): 11.51 mm[Hg], 12.34 mm[Hg] Velocity Time Integral: 51.35 cm, 59.17 cm Tricuspid Valve Peak Velocity (Regurgitant Flow): 2.91 m/s Pulmonic Valve Peak Velocity: 0.92 m/s Peak Gradient: 4.02 mm[Hg], 2.84 mm[Hg] Right Atrium Right Atrium Systolic Pressure: 38.33 ml, 38.33 ml Dictated by: Luis Enrique Macias M.D. on 04/12/2023 at 13:49 Approved by: Luis Enrique Macias M.D. on 04/12/2023 at 13:52
--- NOTE | 2023-04-10 08:03 | PM.PN ---
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 She reports she does see a purification director for a left foot wound that she received while in [place] approximately one week ago. She just seen her purification director in [place] on Tuesday and had a bedside debridement. She also follows with Dr. Alicia Luna for her primary care physician. She does see a galvanizer once a year for evaluation of a leaky valve . She reports over the last few weeks she has had increased falls and on had some chills. She last fell at home hitting her head on the d as she was getting up from bed. She reports she feels dizzy but she denies any loss of consciousness with the falls. She does live at home alone but gets around okay and drives herself at baseline. Her granddaughter came to pick her up and noticed some blood on her pillow from a fall and took her into the Emergency Room yesterday. Patient was found to have a urinary tract infection. Due to her chronic kidney disease and new finding of hypoxia a CTA of the chest cannot be performed so a VQ scan has been ordered and was negative for acute PE. She denies any lung history she is not a smoker. She also notes a history of sleep apnea and was told three years ago she was supposed to use a BiPAP. She also mentions that she has a valvular issue and was told many years ago she needed heart surgery for a valve replacement but it has not led to that yet.she is also noted a productive cough and some shortness of breath ?1 week while in [place]. No overnight events, patient feels improved today Exam Narrative Exam Narrative: General: Patient is alert, and oriented to person, place and time with normal affect, proper hygiene Skin: no visible rashes, or ulcers Head: atraumatic, acephalic Eyes: PERRLA, no nystagmus present, conjunctiva clear, no scleral icterus Ears: normal gross auditory acuity Nose: symmetric, no discharge, no maxillary or frontal sinus tenderness Mouth/Throat: no erythema, exudate, or tonsillar enlargement, normal dentition Neck: no masses palpated, normal thyroid, no JVD or audible carotid bruits Heart: Normal rate and rhythm, no murmurs/rubs/gallops Lungs: no audible wheezes, crackles and normal breath sounds all lung bowen Abdomen: Normal audible bowel sounds, no distension, No palpable masses, no organomegaly, no rebound/guarding/ or rigidity Musculoskeletal: muscle atrophy noted, ROM is limited due to being in hospital bed, no swelling bilateral lower extremities Vascular: Normal carotid, radial, femoral, posterior tibial, and dorsalis pedis pulses Lymph: no supraclavicular, axillary, or anterior/posterior cervical adenopathy Neuro: CN II-X grossly intact, normal sensation upper and lower extremities Constitutional Vital Signs, click to edit/add: Last Vital Signs Temp 98.1 F 04/10/23 06:00 Pulse 63 04/10/23 06:12 Resp 18 04/10/23 06:00 BP 137/57 04/10/23 06:00 Pulse Ox 92 L 04/10/23 06:00 O2 Del Method Nasal Cannula 04/10/23 06:00 O2 Flow Rate 1 04/10/23 06:00 Progress Note: Objective Labs Labs: Short CBC 04/10/23 Range/Units 04:15 WBC 8.5 (4.0-11.0) 10^3/uL Hgb 9.2 L (12.0-16.0) g/dL Hct 28.5 L (36.0-48.0) % Plt Count 163 (150-450) 10^3/uL BMP 04/10/23 04:15 Sodium 136 Potassium 4.1 Chloride 102 Carbon Dioxide 25.0 BUN 82.0 H* Creatinine 3.12 H Glucose 202 H Calcium 7.9 L Progress Note: A&P Assessment and Plan (1) Hypoxemia: (2) Acute UTI: (3) Cellulitis of foot, left: (4) Acute bronchitis: (5) Chronic progressive renal failure, stage 3 (moderate): (6) Mitral valve regurgitation congenital: (7) Insulin dependent type 2 diabetes mellitus, controlled: (8) Diabetic neuropathic arthropathy: (9) Falls frequently: (10) Hypertension: (11) Left thyroid nodule: Plan (1) Hypoxemia: Assessment and Plan: initial CT of the chest was negative for any acute findings, chest x-ray also negative, VQ scan negative. Continue to monitor oxygen status. will check ECHO and get cards consult (2) Acute UTI: Assessment and Plan: urine culture positive for Ecoli, awaiting C&S continue Rocephin (3) Cellulitis of foot, left: Assessment and Plan: and continue Rocephin and monitor (4) Acute bronchitis: Assessment and Plan: add Zithromax (5) Chronic progressive renal failure, stage 3 (moderate): Assessment and Plan: appears at baseline will monitor daily (6) Mitral valve regurgitation congenital: Assessment and Plan: echocardiograms not performed here on the weekends recommend close follow-up with cardiology and repeat echocardiogram tomorrow (7) Insulin dependent type 2 diabetes mellitus, controlled: Assessment and Plan: continue home insulin and sliding scale as needed (8) Diabetic neuropathic arthropathy: Assessment and Plan: continue gabapentin (9) Falls frequently: Assessment and Plan: PT OT evaluation and treat (10) Hypertension: Assessment and Plan: continue home medications (11) Left thyroid nodule: Assessment and Plan: incidental finding on CT of the neck, finding discussed with patient and has been monitored as an outpatient for several years with no change per patient Plan patient is full code Will continue heparin for deep vein thrombosis prophylaxis Patient was in observation status but do to decompensation of oxygen and requirement is expected to stay more than 2 midnights, was changed to inpatient status today
[2023-04-10 08:34] LABS: Glucometer 165 mg/dL (74-106)
[2023-04-10] MEDS: INSULIN ASPART 300 UNIT/3 ML PEN SUBQ ×4 (08:35→21:03)
[2023-04-10] MEDS: FLUTICASONE PROPIONATE 50 MCG NASAL SPRAY 1 SPRAY NS (08:35)
[2023-04-10] MEDS: ASPIRIN 81 MG TAB.CHEW PO (08:39)
[2023-04-10] MEDS: AZITHROMYCIN 250 MG TABLET 500 MG PO (08:39)
[2023-04-10] MEDS: CITALOPRAM HYDROBROMIDE 20 MG TABLET PO (08:39)
[2023-04-10] MEDS: AMLODIPINE BESYLATE 5 MG TABLET 10 MG PO (08:39)
[2023-04-10] MEDS: FUROSEMIDE 40 MG TABLET PO (08:39)
[2023-04-10] MEDS: HEPARIN SODIUM (PORCINE) 5,000 UNIT/ML VIAL 5000 UNIT SUBQ ×2 (08:40→21:02)
[2023-04-10 11:52] LABS: Glucometer 269 mg/dL (74-106)
[2023-04-10] MEDS: 0.9 % SODIUM CHLORIDE 1,000 ML 80 ML IV (11:55)
[2023-04-10] MEDS: CEFTRIAXONE 1,000 MG in 0.9 % SODIUM CHLORIDE 50 ML 100 MG IV (15:21)
[2023-04-10 16:23] LABS: Glucometer 359 mg/dL (74-106)
[2023-04-10 20:02] LABS: Glucometer 265 mg/dL (74-106)
[2023-04-10] MEDS: INSULIN DETEMIR 300 UNIT/3 ML INSULN.PEN 40 UNIT SUBQ (21:03)
[2023-04-10] MEDS: ATORVASTATIN CALCIUM 40 MG TABLET PO (21:03)
[2023-04-10] MEDS: GABAPENTIN 300 MG CAPSULE 600 MG PO (21:03)
[2023-04-11] VITALS (13 sets, daily range): BP systolic 115–138; BP diastolic 63–68; PULSE 59–75; RESP 16–22; TEMP 36.8; O2SAT 85–94
[2023-04-11] MEDS: 0.9 % SODIUM CHLORIDE 1,000 ML 80 ML IV (00:59)
[2023-04-11 05:09] LABS: Basophils Percent Auto 0.4 % (0.2-2.0); Eosinophils Absolute Auto 0.1 10^3/uL (0.0-0.7); Eosinophils Percent Auto 1.4 % (0.9-7.0); Hematocrit 26.4 % (36.0-48.0); Hemoglobin 8.7 g/dL (12.0-16.0); Immature Granulocytes Abs Auto 0.06 10^3/uL (0.00-0.03); Immature Granulocytes Pct Auto 0.7 % (0.0-0.5); Lymphocytes Absolute Auto 1.2 10^3/uL (1.2-3.8); Lymphocytes Percent Auto 15.2 % (20.5-60.0); Mean Corpuscular Hemoglobin 29.8 pg (26.7-34.0); Mean Corpuscular Volume 90.4 fL (81.0-99.0); Mean Platelet Volume 11.4 fL (9.5-13.5); Monocytes Percent Auto 11.9 % (1.7-12.0); Neutrophils Absolute Auto 5.7 10^3/uL (1.4-6.5); Neutrophils Percent Auto 70.4 % (43.0-75.0); Platelet Count 171 10^3/uL (150-450); Red Blood Count 2.92 10^6/uL (4.20-5.40); Red Cell Distribution Width 13.2 % (11.0-15.0)
[2023-04-11] MEDS: GABAPENTIN 300 MG CAPSULE PO ×2 (05:19→12:10)
[2023-04-11 05:33] LABS: Anion Gap 12.1; BUN Creatinine Ratio 25.8; Calcium 7.9 mg/dL (8.5-10.1); Carbon Dioxide 22.8 mmol/L (21.0-32.0); Chloride 106 mmol/L (98-107); Estimated GFR (African America 22 (>=60); Estimated GFR (Non-African Ame 18 (>=60); Glucose 85 mg/dL (74-106); Potassium 3.9 mmol/L (3.5-5.1); Sodium 137 mmol/L (136-145)
[2023-04-11 08:03] LABS: Glucometer 85 mg/dL (74-106)
[2023-04-11] MEDS: FUROSEMIDE 40 MG TABLET PO (08:29)
[2023-04-11] MEDS: AZITHROMYCIN 250 MG TABLET 500 MG PO (08:29)
[2023-04-11] MEDS: ASPIRIN 81 MG TAB.CHEW PO (08:29)
[2023-04-11] MEDS: HEPARIN SODIUM (PORCINE) 5,000 UNIT/ML VIAL 5000 UNIT SUBQ (08:29)
[2023-04-11] MEDS: CITALOPRAM HYDROBROMIDE 20 MG TABLET PO (08:30)
[2023-04-11] MEDS: AMLODIPINE BESYLATE 5 MG TABLET 10 MG PO (08:30)
[2023-04-11] MEDS: FLUTICASONE PROPIONATE 50 MCG NASAL SPRAY 1 SPRAY NS (08:30)
--- NOTE | 2023-04-11 08:35 | P.DS_ITS ---
DS: Providers Provider Date of admission: 04/08/23 17:35 Primary care physician: CINTHIA ORNELAS Admitting clinician: Mario Santiago Consults: 04/08/23 17:31 Physical Therapy Eval and Treat Routine Reason for consultation: Weakness 04/08/23 17:32 Occupational Therapy Eval and Treat Routine Reason for consultation: Weakness 04/10/23 06:21 Consult to Cardiology Routine Consulting Provider: ALEX SALGADO Reason for consultation: hypoxia, valvular issues, dizziness/falls Has provider been notified: No Discharging clinician: Amisha Caldera DS: Diagnosis Discharge Diagnosis (1) Hypoxemia: (2) Acute UTI: (3) Cellulitis of foot, left: (4) Acute bronchitis: (5) Chronic progressive renal failure, stage 3 (moderate): (6) Mitral valve regurgitation congenital: (7) Insulin dependent type 2 diabetes mellitus, controlled: (8) Diabetic neuropathic arthropathy: (9) Falls frequently: (10) Hypertension: (11) Left thyroid nodule: DS: Summary Hospital Course Hospital Course: patient is a 77-year-old female with past medical history of chronic kidney disease stage III of which she sees a project mgr, type 2 insulin- dependent diabetes, diabetic neuropathy, hyperlipidemia, hypertension, depression, and a heart murmur of unknown source. She reports she does see a metal wire coating operator for a left foot wound that she received while in [place] approximately one week ago. She just seen her metal wire coating operator in [place] on Tuesday and had a bedside debridement. She also follows with Dr. Alicia Luna for her primary care physician. She does see a hospitalist program director once a year for evaluation of a leaky valve . She reports over the last few weeks she has had increased falls and on had some chills. She last fell at home hitting her head on the nightstand as she was getting up from bed. She reports she feels dizzy but she denies any loss of consciousness with the falls. She does live at home alone but gets around okay and drives herself at baseline. Her granddaughter came to pick her up and noticed some blood on her pillow from a fall and took her into the Emergency Room yesterday. Patient was found to have a urinary tract infection. Due to her chronic kidney disease and new finding of hypoxia a CTA of the chest cannot be performed so a VQ scan has been ordered and was negative for acute PE. She denies any lung history she is not a smoker. She also notes a history of sleep apnea and was told three years ago she was supposed to use a BiPA and has not. we discussed the need for outpatient sleep study and to establish Care with pulmonology, also she did not qualify for home oxygen. She also mentions that she has a valvular issue and was told many years ago she needed heart surgery for a valve replacement but it has not led to that yet. Echo completed today, Cardiology looks at her chart and felt an outpatient follow up only was warranted and felt inpatient consultation was not needed. She will follow up with them in 1-2 weeks to discuss results of echo and also her PCP. Azithromycin and rocephin was stopped today, Urine culture positive for E.coli sensitive to levaquin. Renally dosed 250mg daily for 7 days was sent to the pharmacy. No other changes in home medications. She will need to follow up with PCP, Cards, Pulm, metal wire coating operator and her project mgr after discharge. Status at Discharge Functional status at discharge: uses cane/walker Time Spent with Patient Time attestation: Total time spent providing and/or coordinating discharge services: Time spent: greater than 30 minutes Exam Narrative Exam Narrative: General: Patient is alert, and oriented to person, place and time with normal affect, proper hygiene Skin: left great toe at the PIP joint slight erythema, nice healing tissue, no signs of acute cellulitis Head: atraumatic, acephalic Eyes: PERRLA, no nystagmus present, conjunctiva clear, no scleral icterus Ears: normal gross auditory acuity Nose: symmetric, no discharge, no maxillary or frontal sinus tenderness Mouth/Throat: no erythema, exudate, or tonsillar enlargement, normal dentition Neck: no masses palpated, normal thyroid, no JVD or audible carotid bruits Heart: holosystolic murmur, no rubs/gallops Lungs: no audible wheezes, crackles and normal breath sounds all lung bowen Abdomen: Normal audible bowel sounds, no distension, No palpable masses, no organomegaly, no rebound/guarding/ or rigidity Musculoskeletal: muscle atrophy noted, ROM is limited due to being in hospital bed, no swelling bilateral lower extremities Vascular: Normal carotid, radial, femoral, posterior tibial, and dorsalis pedis pulses Lymph: no supraclavicular, axillary, or anterior/posterior cervical adenopathy Neuro: CN II-X grossly intact, normal sensation upper and lower extremities Constitutional Vital Signs, click to edit/add: Last Vital Signs Temp 98.2 F 04/11/23 07:36 Pulse 59 L 04/11/23 07:51 Resp 20 04/11/23 07:36 BP 115/63 04/11/23 07:36 Pulse Ox 91 L 04/11/23 07:36 O2 Del Method Nasal Cannula 04/11/23 07:36 O2 Flow Rate 2 04/11/23 07:36 DS: Data Data Completed and Pending Labs on day of discharge: Labs from last 24 hours 04/11/23 04/11/23 04/10/23 08:01 04:08 20:00 WBC 8.0 RBC 2.92 L Hgb 8.7 L Hct 26.4 L MCV 90.4 MCH 29.8 MCHC 33.0 RDW 13.2 Plt Count 171 MPV 11.4 Neut % (Auto) 70.4 Lymph % (Auto) 15.2 L [place] % (Auto) 11.9 Eos % (Auto) 1.4 Baso % (Auto) 0.4 Neut # (Auto) 5.7 Lymph # (Auto) 1.2 [place] # (Auto) 1.0 H Eos # (Auto) 0.1 Baso # (Auto) 0.0 Abs Immat Gran (auto) 0.06 H Imm/Tot Granulo (auto) 0.7 H Sodium 137 Potassium 3.9 Chloride 106 Carbon Dioxide 22.8 Anion Gap 12.1 BUN 66.0 H Creatinine 2.56 H Est GFR ( Amer) 22 L Est GFR (Non-Af Amer) 18 L BUN/Creatinine Ratio 25.8 Glucose 85 Calcium 7.9 L POC Glucose 85 265 H 04/10/23 04/10/23 16:22 11:51 WBC RBC Hgb Hct MCV MCH MCHC RDW Plt Count MPV Neut % (Auto) Lymph % (Auto) [place] % (Auto) Eos % (Auto) Baso % (Auto) Neut # (Auto) Lymph # (Auto) [place] # (Auto) Eos # (Auto) Baso # (Auto) Abs Immat Gran (auto) Imm/Tot Granulo (auto) Sodium Potassium Chloride Carbon Dioxide Anion Gap BUN Creatinine Est GFR ( Amer) Est GFR (Non-Af Amer) BUN/Creatinine Ratio Glucose Calcium POC Glucose 359 H 269 H Discharge Plan Discharge Disposition: Home, Self-Care Condition: Good Discharge Medications: New levofloxacin 500 mg Tablet 250 mg PO DAILY 7 Days Qty: 4 0RF Continued amlodipine 10 mg tablet 10 mg PO DAILY aspirin 81 mg tablet,chewable 81 mg PO DAILY atorvastatin 40 mg tablet 40 mg PO QPM B-complex with vitamin C Tablet 1 tab PO DAILY calcium citrate 200 mg (950 mg) tablet 200 mg PO DAILY cholecalciferol (vitamin D3) 125 mcg (5,000 unit) capsule 125 mcg PO DAILY fluticasone propionate [Flonase Allergy Relief] 50 mcg/actuation spray,suspension 1 spray intranasal DAILY Rx Instructions: administer into each nostril DAILY Centrum Complete 18-400 mg-mcg tablet 1 tab PO DAILY furosemide 40 mg tablet 40 mg PO DAILY gabapentin 300 mg capsule 300 mg PO TID gabapentin 600 mg tablet 600 mg PO .QHS Rx Instructions: 300 MG TID AND 600 MG QHS insulin glargine 100 unit/mL solution 40 unit subcut QPM insulin lispro 100 unit/mL solution 10 unit subcut QAM insulin lispro 100 unit/mL insulin pen 15 unit subcut BID Rx Instructions: 15 UNITS WITH LUNCH AND DINNER citalopram [Celexa] 20 mg tablet 20 mg PO DAILY Xiidra 5 % dropperette 1 drp ophthalmic (eye) BID Rx Instructions: administer approximately 12 hours apart losartan 50 mg tablet 50 mg PO DAILY omeprazole 20 mg capsule,delayed release(DR/EC) 20 mg PO DAILY colestipol [Colestid] 1 gram tablet 2 g PO DAILY Activity: ambulate only with your walker and increase activity as tolerated Diet: advance to your usual diet Forms: Portal Instructions Follow Up Appointments: Follow up appt. with Dr. Ornelas on Apr.20 @ 2:00pm Office #: [phone] Follow up with Pulmonary-discussion for sleep study/history of sleep apnea (Dr. Freeman) Follow up with Cardiology-review Echo results Follow up with Podiatry in [place]-patient has appt in 1 week Follow up with Tree And Shrub Technician as patient has scheduled
[2023-04-11] MEDS: LEVOFLOXACIN 500 MG TABLET 250 MG PO (10:42)
--- NOTE | 2023-04-11 11:31 | CM.NOTE ---
Rounds made with bud Alexandra for discharge to home today. Nursing has pt on RA at this time, will follow for any home oxygen needs. Pt will need outpt sleep study and f/u appt with traffic expert, elementary education teacher and family doctor. Pt and granddaughter verbalize understanding.
[2023-04-11 11:37] LABS: Glucometer 158 mg/dL (74-106)
[2023-04-11] MEDS: INSULIN ASPART 300 UNIT/3 ML PEN SUBQ (11:48)
--- NOTE | 2023-04-11 11:52 | PT.DAILY ---
Physical Therapy Daily Note PT Daily Note/Assess Start: 04/11/23 11:49 Freq: Status: Active Protocol: Document 04/11/23 11:49 CATERINA (Rec: 04/11/23 11:52 DAVIDERON [id number]) Physical Therapy Daily Note/Assessment Time In/Time Out Time In 11:10 Time Out 11:25 Pain In Pain N/A Pain Out Pain N/A Subjective Subjective Pt sitting in BS chair with granddaughter present. Denies pain. Agrees to PT. Planned dc to home today. Therapeutic Exercise Time Therapeutic Exercise Minutes (minutes) 5 Therapeutic Exercise Units 0 Therapeutic Exercise Treatment Therapeutic Exercise Treatment Seated LE ex complete 10x in BS chair to improve functional mobility prior to gait. Therapeutic Activity Time Therapeutic Activity Minutes (minutes) 10 Therapeutic Activity Units 1 Therapeutic Activity Treatment Chair Transfer Ability Standby Assistance Therapeutic Activity Comments Pt sit>stand to RW SBA with assistance for IV pole. Pt is then disconnected from IV for amb in rodriguez. pt amb 100' with RW SBA. Pt performs stair training with bilat HR 4 steps x 2 without rest break. Pt then amb another 100' back to room with RW. Returned to BS chair. SPo2 93% with activity and quickly recovers to 97% without 10 sec of rest. Total Physical Therapy Time Total Therapy Minutes 15 Total Physical Therapy Units 1 Summary Daily Note Summary Improved endurance with gait and activity on room air. Planned dc to home today.
--- NOTE | 2023-04-11 12:19 | CM.NOTE ---
Important Message From Medicare discussed with pt, pt verbalizes understanding and signs paper. Original given to pt and copy placed on pt's chart.
--- NOTE | 2023-04-11 13:03 | SWNOTE1 ---
SW spoke with case management, there was a potential need for home oxygen, but pt did well on room air. Pt has no needs at discharge.
--- NOTE | 2023-04-11 13:20 | PC.NURSE ---
see POC glucose
--- NOTE | 2023-04-12 15:46 | CM.DCFOLLOWU ---
Person spoke with: patient How are you feeling? alright, some shortness of breath, tired How is your pain? no pain Did you understand your discharge instructions? yes Do you have any questions about your discharge instructions? no Were you given any prescriptions at discharge? yes Were you able to get your prescriptions filled? yes Do you understand how to take your medications as ordered? yes Do you have any questions about your follow up appointment and do you plan to keep your follow up appointment? no questions, reviewed all follow up appointments with patient Is there anything else that you would like to discuss? no Questions/Comments/Concerns/Other:
== END 2023-04-11 16:41 | disposition home or self-care (01) ==
LOC: ER 16:08 → MS 17:34
PROVIDERS: Family Medicine; Admitting Provider Family Medicine; Emergency Provider Emergency Medicine; PCP Family Medicine; Visit Provider Family Medicine
DX: N39.0 Urinary tract infection, site not specified (principal); L03.116 Cellulitis of left lower limb; I12.9 Hypertensive chronic kidney disease with stage 1 through stage 4 chronic kidney disease, or unspecified chronic kidney disease; N18.30 Chronic kidney disease, stage 3 unspecified; J20.9 Acute bronchitis, unspecified; E11.22 Type 2 diabetes mellitus with diabetic chronic kidney disease; E11.40 Type 2 diabetes mellitus with diabetic neuropathy, unspecified; E78.5 Hyperlipidemia, unspecified; F32.A Depression, unspecified; R09.02 Hypoxemia; Q23.3 Congenital mitral insufficiency; E04.1 Nontoxic single thyroid nodule; B96.20 Unspecified Escherichia coli [E. coli] as the cause of diseases classified elsewhere; R01.1 Cardiac murmur, unspecified; G47.30 Sleep apnea, unspecified; R06.02 Shortness of breath; Z91.81 History of falling; Z79.82 Long term (current) use of aspirin; Z79.4 Long term (current) use of insulin; Z79.899 Other long term (current) drug therapy; Z20.822 Contact with and (suspected) exposure to COVID-19
CPT/HCPCS: 0202U; 36415; 36600; 70450; 71045; 71046; 71250; 72125; 73630; 78582; 80048; 80053; 81001; 82805; 82948; 83735; 83880; 84443; 84484; 85025; 87086; 87150; 87186; 87635; 93005; 93306; 94761; 96365; 96366; 96372; 97162; 97165; 97530; 99285; A9540; A9567; G0378